=== PATIENT | female | born 1995 | race Caucasian/White ===

== ENCOUNTER 2019-02-07 15:09 | Emergency (ER) | payer OTHER ==
--- OUTSIDE RECORDS SUMMARY | 2019-02-07 15:11 | XMS REPORT ---
:1995 [facility] [address] [place] [address] Care Team Providers Name Role Phone Unavailable Unavailable Unavailable Payers Payer Name Policy Type Policy Number Effective Date Expiration Date Problems This patient has no known problems. Allergies, Adverse Reactions, Alerts Allergy Name Allergy Status Severity Reaction(s) Onset Inactive Treating Comments Type Date Date Clinician Beef Containing DA Active SV Products 09-09 00:00: 00 hydromorphone DA Active SV 09-09 00:00: 00 cyclobenzaprine DA Active SD 09-09 00:00: 00 chocolate DA Active SV flavor 09-09 00:00: 00 milk DA Active SV 09-09 00:00: 00 tomato DA Active SV 09-09 00:00: 00 Medications This patient has no known medications.
[2019-02-07 15:50] LABS: Urine Blood TRACE (NEG); Urine Glucose NEGATIVE (NEG); Urine Protein NEGATIVE (NEG); Urine pH 5.5 (5.0-7.0)
[2019-02-07 16:15] LABS: Urine Bacteria <20 /HPF (<20); Urine Culture Reflex Order NOT NEEDED; Urine RBC <5 /HPF (NONE SEEN)
[2019-02-07] MEDS ORDERED: ONDANSETRON 4 MG/2 ML VIAL ONE (16:30)
[2019-02-07] MEDS ORDERED: NA CHLORIDE 0.9% 1,000 ML ONE ×2 (16:30→17:01)
[2019-02-07] MEDS ORDERED: FAMOTIDINE 20 MG/2 ML VIAL IV ONE (16:30)
[2019-02-07 16:35] LABS: Absolute Lymphocytes (CBC) 3.2 K/uL (0.7-4.9); Basophils % 0.5 % (0-1.3); Hematocrit 36.6 % (36.0-45.0); Lymphocytes % 43.9 % (15.3-44.8); MPV 7.9 fL (7.6-11.3); RBC Red Blood Cell Count 4.92 M/uL (3.86-4.86)
[2019-02-07 16:54] LABS: Albumin 3.6 g/dL (3.4-5.0); Bilirubin Direct 0.1 mg/dL (0-0.2); Bilirubin Total 0.2 mg/dL (0.2-1.0); Potassium 3.7 mmol/L (3.5-5.1); Protein, Total 7.6 g/dL (6.4-8.2)
[2019-02-07] MEDS ORDERED: KETOROLAC 30 MG/ML INJ ONE (17:01)
--- NOTE | 2019-02-07 17:24 | RAD REPORT ---
EXAM DESCRIPTION: CTAbdomen Pelvis W Contrast - 02/07/2019 5:10 pm CLINICAL HISTORY: Abdominal pain. ABD PAIN COMPARISON: <Comparisons> TECHNIQUE: Biphasic CT imaging of the abdomen and pelvis was performed with 100 ml non-ionic IV cont rast. All CT scans are performed using dose optimization technique as appropriate and may include automated exposure control or mA/KV adjustment according to patient size. FINDINGS: The lung bases are clear. The liver, spleen, pancreas, adrenal glands and kidneys are within normal limits. Small bilateral elias ign renal cysts. No bowel obstruction, free air, free fluid or abscess. The appendix is normal. No evidence of signi ficant lymphadenopathy. No suspicious bony findings. IUD noted. IMPRESSION: No acute intra-abdominal or pelvic finding.
--- NOTE | 2019-02-07 18:05 | EDPHYS ---
Physician Documentation [facility] Name: Peri Clay Age: 23 yrs Sex: Female : 1995 Arrival Date: 02/07/2019 Time: 15:13 Bed 5 Private MD: ED Physician Kevin Plunkett HPI: 02/07 15:45 This 23 yrs old Female presents to ER via Ambulatory with complaints of cp Abdominal Pain, Nausea. 15:45 The patient presents with abdominal pain. cp 15:45 Associated signs and symptoms: Pertinent positives: nausea and vomiting, fever, right cp flank pain that started yesterday, Pertinent negatives: blood in stools, constipation, diarrhea, vomiting blood. The symptoms are described as constant. 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 - Social history:: Smoking status: Patient uses tobacco products, denies chronic smoking, but will smoke occasionally. - Ebola Screening: : No symptoms or risks identified at this time. ROS: 15:55 Constitutional: Negative for chills, fever, poor PO intake. cp 15:55 Eyes: Negative for injury, pain, redness, and discharge. cp 15:55 ENT: Negative for drainage from ear(s), ear pain, sore throat, difficulty swallowing, difficulty handling secretions. 15:55 Cardiovascular: Negative for chest pain. cp 15:55 Respiratory: Negative for cough, shortness of breath, wheezing. cp 15:55 Abdomen/GI: Positive for abdominal pain, nausea and vomiting, Negative for diarrhea, constipation, anorexia, black/tarry stool, rectal bleeding. 15:55 Back: Positive for flank pain, Negative for injury or acute deformity, decreased range of motion. 15:55 : Negative for pelvic pain, vaginal bleeding, vaginal discharge. 15:55 MS/extremity: Negative for injury or acute deformity, decreased range of motion. 15:55 Skin: Negative for rash. 15:55 Neuro: Negative for altered mental status, headache, weakness. 15:55 All other systems are negative. Exam: 16:00 Constitutional: The patient appears in no acute distress, alert, awake, non-toxic, well cp developed, well nourished. 16:00 Head/Face: Normocephalic, atraumatic. cp 16:00 Eyes: Periorbital structures: appear normal, Conjunctiva: normal, no exudate, no cp injection, Sclera: no appreciated abnormality, Lids and lashes: appear normal, bilaterally. 16:00 ENT: External ear(s): are unremarkable, Nose: is normal, Mouth: Lips: moist, Oral mucosa: pink and intact, moist, Posterior pharynx: is normal, airway is patent, no erythema, no exudate. 16:00 Chest/axilla: Inspection: normal, Palpation: is normal, no crepitus, no tenderness. 16:00 Cardiovascular: Rate: normal, Rhythm: regular. 16:00 Respiratory: the patient does not display signs of respiratory distress, Respirations: cp normal, no use of accessory muscles, no retractions, no splinting, no tachypnea, labored breathing, is not present, Breath sounds: are clear throughout, no decreased breath sounds, no stridor, no wheezing. 16:00 Abdomen/GI: Inspection: abdomen appears normal, Bowel sounds: active, all quadrants, Palpation: soft, in all quadrants, mild abdominal tenderness, in the right upper quadrant and right lower quadrant, rebound tenderness, is not appreciated, involuntary guarding, is not appreciated. 16:00 Back: pain, that is moderate, of the right mid back, ROM is painful. 16:00 Skin: no rash present. 16:00 Neuro: Orientation: to person, place \\T\\ time. Mentation: is normal, Cerebellar function: is grossly normal, Motor: moves all fours, Sensation: is normal. Vital Signs: 15:19 BP 111 / 78; Pulse 87; Resp 18 S; Temp 99.0(TE); Pulse Ox 98% on R/A; Weight 83.46 kg aa5 (R); Height 5 ft. 5 in. (165.10 cm) (R); Pain 6/10; 16:37 BP 116 / 81; Pulse 68; Resp 17; Pulse Ox 100% on R/A; tw2 17:15 Temp 98.3(O); tw2 17:29 BP 123 / 78; Pulse 90; Resp 18; Pulse Ox 100% ; sv 18:44 BP 117 / 91; Pulse 82; Resp 17; Pulse Ox 100% on R/A; tw2 15:19 Body Mass Index 30.62 (83.46 kg, 165.10 cm) aa5 MDM: 15:41 Patient medically screened. cp 16:00 Differential diagnosis: appendicitis, cholecystitis, Cholelithiasis, gastritis, cp non-specific abd pain, Pyelonephritis, Ureterolithiasis, urinary tract infection. 18:02 Data reviewed: vital signs, nurses notes, lab test result(s), radiologic studies, CT cp scan, and as a result, I will discharge patient. 18:02 Counseling: I had a detailed discussion with the patient and/or guardian regarding: the cp historical points, exam findings, and any diagnostic results supporting the discharge/admit diagnosis, lab results, radiology results, to return to the emergency department if symptoms worsen or persist or if there are any questions or concerns that arise at home. Special discussion: Based on the patient's Hx, exam, and Dx evaluation, there is no indication for emergent surgery or inpatient Tx. It is understood by the patient/guardian that if the Sx's persist or worsen they need to return immediately for re-evaluation. 02/07 15:42 Order name: Basic Metabolic Panel; Complete Time: 16:58 cp 02/07 15:42 Order name: CBC with Diff; Complete Time: 16:38 cp 02/07 16:38 Interpretation: Normal except: RBC 4.92; HGB 11.6; MCV 74.4; MCH 23.5; MCHC 31.6; RDW cp 16.0. 02/07 15:42 Order name: Creatinine for Radiology; Complete Time: 16:58 cp 02/07 15:42 Order name: Hepatic Function; Complete Time: 16:58 cp 02/07 15:42 Order name: Lipase; Complete Time: 16:58 cp 02/07 15:42 Order name: Urine Microscopic Only; Complete Time: 16:38 cp 02/07 15:45 Order name: Urine Dipstick--Ancillary (enter results); Complete Time: 16:38 eb 02/07 15:45 Order name: Urine --Ancillary (enter results); Complete Time: 16:38 eb 02/07 16:45 Order name: CT Abd/Pelvis - IV Contrast Only; Complete Time: 17:33 cp 02/07 15:42 Order name: IV Saline Lock; Complete Time: 16:29 cp 02/07 15:42 Order name: Labs collected and sent; Complete Time: 16:29 cp 02/07 15:42 Order name: Urine Dipstick-Ancillary (obtain specimen); Complete Time: 15:43 cp 02/07 15:42 Order name: Urine Test (obtain specimen); Complete Time: 15:43 cp 02/07 17:33 Order name: PO challenge; Complete Time: 18:15 cp Administered Medications: 16:35 Drug: Zofran 4 mg Route: IVP; Site: right antecubital; tw2 16:59 Follow up: Response: No adverse reaction; Nausea is decreased tw2 16:36 Drug: Pepcid 20 mg Route: IVP; Site: right antecubital; tw2 16:59 Follow up: Response: No adverse reaction tw2 16:36 Drug: NS 0.9% 1000 ml Route: IV; Rate: 1 bolus; Site: right antecubital; tw2 18:15 Follow up: Response: No adverse reaction; IV Status: Completed infusion; IV Intake: tw2 1000ml 17:10 Drug: TORadol 30 mg Route: IVP; Site: right antecubital; tw2 17:46 Follow up: Response: No adverse reaction; Pain is decreased tw2 17:21 Drug: NS 0.9% 1000 ml Route: IV; Rate: 1 bolus; Site: right antecubital; tw2 18:15 Follow up: Response: No adverse reaction; IV Status: Order to discontinue infusion tw2 Disposition: 02/07/19 18:04 Discharged to Home. Impression: Nausea and vomiting, Low back pain. - Condition is Stable. - Discharge Instructions: Back Pain, Adult, Nausea and Vomiting, Adult. - Prescriptions for Ibuprofen 800 mg Oral Tablet - take 1 tablet by ORAL route every 8 hours As needed take with food; 30 tablet. Zofran 4 mg Oral Tablet - take 1 tablet by ORAL route every 12 hours As needed; 20 tablet. - Medication Reconciliation Form, Thank You Letter, Antibiotic Education, Prescription Opioid Use, Work release form form. - Follow up: Private Physician; When: 2 - 3 days; Reason: Worsening of condition. - Problem is new. - Symptoms have improved. Signatures: Dispatcher [employer] Linh Beltran, RN RN aa5 Tarik Rai PA PA cp Wise, Tara RN RN tw2 Corrections: (The following items were deleted from the chart) 18:44 18:04 02/07/2019 18:04 Discharged to Home. Impression: Nausea and vomiting; Low back tw2 pain. Condition is Stable. Forms are Work release form, Medication Reconciliation Form, Thank You Letter, Antibiotic Education, Prescription Opioid Use. Follow up: Private Physician; When: 2 - 3 days; Reason: Worsening of condition. Problem is new. Symptoms have improved. cp
--- NOTE | 2019-02-07 18:05 | ER ---
Nurse's Notes [facility] Name: Peri Clay Age: 23 yrs Sex: Female : 1995 Arrival Date: 02/07/2019 Time: 15:13 Bed 5 Private MD: Diagnosis: Nausea and vomiting;Low back pain Presentation: 02/07 15:17 Presenting complaint: Patient states: "I started with kidney pain and nausea yesterday aa5 and I had confirmed strep on Tuesday and they told me to come to the ER for kidney pain if I had any". Pt reports she is currently taking Amoxicillin. Transition of care: patient was not received from another setting of care. Onset of symptoms was January 2019. Risk Assessment: Do you want to hurt yourself or someone else? Patient reports no desire to harm self or others. Initial Sepsis Screen: Does the patient meet any 2 criteria? No. Patient's initial sepsis screen is negative. Does the patient have a suspected source of infection? No. Patient's initial sepsis screen is negative. Care prior to arrival: None. 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 - Social history:: Smoking status: Patient uses tobacco products, denies chronic smoking, but will smoke occasionally. - Ebola Screening: : No symptoms or risks identified at this time. Screenin:29 Abuse screen: Denies threats or abuse. Nutritional screening: No deficits noted. tw2 Tuberculosis screening: No symptoms or risk factors identified. Fall Risk None identified. Assessment: 15:20 General: Appears in no apparent distress. Behavior is calm, cooperative, appropriate tw2 for age. Pain: Complains of pain in back and abdomen. Neuro: Level of Consciousness is awake, alert, obeys commands, Oriented to person, place, time, situation. Cardiovascular: Heart tones S1 S2 Patient's skin is warm and dry. Respiratory: Airway is patent Respiratory effort is even, unlabored, Respiratory pattern is regular, symmetrical, Breath sounds are clear bilaterally. GI: Abdomen is flat, Bowel sounds present X 4 quads. Abd is soft X 4 quads Abdomen is tender to palpation X 4 quads. : No signs and/or symptoms were reported regarding the genitourinary system. EENT: No signs and/or symptoms were reported regarding the EENT system. Derm: No signs and/or symptoms reported regarding the dermatologic system. Musculoskeletal: Range of motion: intact in all extremities. 16:37 Reassessment: Patient appears in no apparent distress at this time. No changes from tw2 previously documented assessment. Patient and/or family updated on plan of care and expected duration. Pain level reassessed. Patient is alert, oriented x 3, equal unlabored respirations, skin warm/dry/pink. 17:29 Reassessment: Patient appears in no apparent distress at this time. No changes from tw2 previously documented assessment. Patient and/or family updated on plan of care and expected duration. Pain level reassessed. Patient is alert, oriented x 3, equal unlabored respirations, skin warm/dry/pink. 18:15 Reassessment: Patient appears in no apparent distress at this time. No changes from tw2 previously documented assessment. Patient and/or family updated on plan of care and expected duration. Pain level reassessed. Patient is alert, oriented x 3, equal unlabored respirations, skin warm/dry/pink. pt tolerated PO fluids at this time, pt asking for work note and ready to be discharged at this time. 18:44 Reassessment: Patient appears in no apparent distress at this time. No changes from tw2 previously documented assessment. Patient and/or family updated on plan of care and expected duration. Pain level reassessed. Patient is alert, oriented x 3, equal unlabored respirations, skin warm/dry/pink. Vital Signs: 15:19 BP 111 / 78; Pulse 87; Resp 18 S; Temp 99.0(TE); Pulse Ox 98% on R/A; Weight 83.46 kg aa5 (R); Height 5 ft. 5 in. (165.10 cm) (R); Pain 6/10; 16:37 BP 116 / 81; Pulse 68; Resp 17; Pulse Ox 100% on R/A; tw2 17:15 Temp 98.3(O); tw2 17:29 BP 123 / 78; Pulse 90; Resp 18; Pulse Ox 100% ; sv 18:44 BP 117 / 91; Pulse 82; Resp 17; Pulse Ox 100% on R/A; tw2 15:19 Body Mass Index 30.62 (83.46 kg, 165.10 cm) aa5 ED Course: 15:13 Patient arrived in ED. mr 15:17 Arm band placed on. aa5 15:18 Triage completed. aa5 15:20 Bed in low position. Call light in reach. Pulse ox on. NIBP on. tw2 15:22 Tarik Rai PA is PHCP. cp 15:22 Kevin Plunkett MD is Attending Physician. cp 15:29 Ruby Álvarez RN is Primary Nurse. tw2 15:44 Urine collected: clean catch specimen, clear. 3 16:25 Initial lab(s) drawn, by ak, sent to lab. Inserted saline lock: 22 gauge in right dh3 antecubital area, using aseptic technique. Blood collected. 17:10 CT completed. Patient tolerated procedure well. Patient moved to CT. Patient moved back nj from CT. 17:24 CT Abd/Pelvis - IV Contrast Only In Process Unspecified. EDMS 18:07 Awaiting: completion of IV fluids at this time PRIOR to discharge. tw2 18:15 No provider procedures requiring assistance completed. IV discontinued, intact, tw2 bleeding controlled, No redness/swelling at site. Pressure dressing applied. Administered Medications: 16:35 Drug: Zofran 4 mg Route: IVP; Site: right antecubital; tw2 16:59 Follow up: Response: No adverse reaction; Nausea is decreased tw2 16:36 Drug: Pepcid 20 mg Route: IVP; Site: right antecubital; tw2 16:59 Follow up: Response: No adverse reaction tw2 16:36 Drug: NS 0.9% 1000 ml Route: IV; Rate: 1 bolus; Site: right antecubital; tw2 18:15 Follow up: Response: No adverse reaction; IV Status: Completed infusion; IV Intake: tw2 1000ml 17:10 Drug: TORadol 30 mg Route: IVP; Site: right antecubital; tw2 17:46 Follow up: Response: No adverse reaction; Pain is decreased tw2 17:21 Drug: NS 0.9% 1000 ml Route: IV; Rate: 1 bolus; Site: right antecubital; tw2 18:15 Follow up: Response: No adverse reaction; IV Status: Order to discontinue infusion tw2 Intake: 18:15 IV: 1000ml; Total: 1000ml. tw2 Outcome: 18:04 Discharge ordered by . terence 18:43 Discharged to home ambulatory. tw2 18:43 Condition: stable 18:43 Discharge instructions given to patient, Instructed on discharge instructions, follow up and referral plans. medication usage, Demonstrated understanding of instructions, follow-up care, medications, Prescriptions given X 2. 18:44 Patient left the ED. tw2 Signatures: Dispatcher [employer] EDEsmer Hi, RN RN Ruthann Begum Carlos, Linh RN RN aa5 Tarik Rai PA PA cp Wise, Tara, RN RN tw2 Kenn August Deanna [facility]
== END 2019-02-07 18:44 | disposition home or self-care (01) ==
LOC: ER 15:09
DX: M54.5 Low back pain (principal); Z72.0 Tobacco use; Z88.6 Allergy status to analgesic agent; Z88.8 Allergy status to other drugs, medicaments and biological substances
CPT/HCPCS: 96361; 85025; 80048; 36415; 81025; 80076; 83690; 74177; 96375; 96374; 99284; Q9967; J7030 ×2; J2405; 81003; 81015

== ENCOUNTER 2020-04-23 14:57 | Emergency (ER) | payer OTHER ==
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
--- OUTSIDE RECORDS SUMMARY | 2020-04-23 15:01 | XMS REPORT | Continuity of Care Document ---
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 REFLEX (test code = 0-3 WBC/HPF 0-3 WBCUCL) UA BACTERIA (test code = BACU) NONE SEEN /HPF NONE SEEN UA SQUAMOUS CELLS (test code = 0-5 /HPF NONE SEEN SQU) UA MUCUS (test code = MUCU) TRACE /LPF NONE SEEN Indication for culture: Dysuria/FrequencySpecimen Description: CLEAN CATCH COMPREHENSIVE METABOLIC [id number] 21:42:00 Test Item Value Reference Range Interpretation Comments SODIUM (test code = NA) mEq/L 134-147 POTASSIUM (test code = K) mEq/L 3.4-5.0 CHLORIDE (test code = CL) mEq/L 100-108 CARBON DIOXIDE (test code = CO2) mEq/L 21-33 ANION GAP (test code = GAP) 0-20 GLUCOSE (test code = GLU) mg/dL 70-110 BLOOD UREA NITROGEN (test code = mg/dL 7-18 BUN) GLOMERULAR FILTRATION RATE (test 110-120 code = GFR) CREATININE (test code = CREAT) mg/dL 0.6-1.3 TOTAL PROTEIN (test code = PROT) g/dL 6.4-8.2 ALBUMIN (test code = ALB) g/dL 3.4-5.0 CALCIUM (test code = CA) mg/dL 8.0-10.5 BILIRUBIN TOTAL (test code = BILT) MG/DL <1.5 SGOT/AST (test code = AST) IUnit/L 15-37 SGPT/ALT (test code = ALT) IUnit/L 15-65 ALKALINE PHOSPHATASE TOTAL (test IUnit/L 20-125 code = ALKP) [id number] 21:42:00 Test Item Value Reference Range Interpretation Comments LIPASE (test code = LIP) IUnit/L 73-393 HCG SERUM [id number] 21:42:00 Test Item Value Reference Range Interpretation Comments HCG SERUM QUAL (test code = SERUM NEGATIVE NEGATIVE HCGQL) CBC W/AUTO [id number] 21:32:00 Test Item Value Reference Range Interpretation Comments WHITE BLOOD CELL (test code = 10.43 x10 3/uL 4.5-11.0 N WBC) RED BLOOD CELL (test code = 4.71 x10 6/uL 3.54-5.02 N RBC) HEMOGLOBIN (test code = HGB) 12.1 g/dL 11.0-15.0 N HEMATOCRIT (test code = HCT) 39.1 % 33.0-45.0 N MEAN CELL VOLUME (test code = 83.0 fL 81.0-99.0 N MCV) MEAN CELL HGB (test code = 25.7 pg 27.0-33.0 L MCH) MEAN CELL HGB CONCETRATION 30.9 g/dL 33.0-37.0 L (test code = MCHC) RED CELL DISTRIBUTION WIDTH CV 16.3 % 11.5-14.5 H (test code = RDW) RED CELL DISTRIBUTION WIDTH SD 49.9 fL 37.0-54.0 N (test code = RDW-SD) PLATELET COUNT (test code = 281 x10 3/uL 150-400 N PLT) MEAN PLATELET VOLUME (test 9.5 fL 7.0-9.0 H code = MPV) NEUTROPHIL % (test code = NT%) 55.2 % 56.0-77.0 L IMMATURE GRANULOCYTE % (test 0.3 % 0.0-2.0 N code = IG%) LYMPHOCYTE % (test code = LY%) 35.5 % 14.0-32.0 H MONOCYTE % (test code = MO%) 7.0 % 4.8-9.0 N EOSINOPHIL % (test code = EO%) 1.6 % 0.3-3.7 N BASOPHIL % (test code = BA%) 0.4 % 0.0-2.0 N NUCLEATED RBC % (test code = 0.0 % 0-0 N NRBC%) NEUTROPHIL # (test code = NT#) 5.76 x10 3/uL 2.0-7.6 N IMMATURE GRANULOCYTE # (test 0.03 x10 3/uL 0.00-0.03 N code = IG#) LYMPHOCYTE # (test code = LY#) 3.70 x10 3/uL 1.0-3.8 N MONOCYTE # (test code = MO#) 0.73 x10 3/uL 0.1-0.8 N EOSINOPHIL # (test code = EO#) 0.17 x10 3/uL 0.0-0.2 N BASOPHIL # (test code = BA#) 0.04 x10 3/uL 0.0-0.2 N NUCLEATED RBC # (test code = 0.00 x10 3/uL 0.0-0.1 N NRBC#) MANUAL DIFF REQUIRED (test NO code = MDIFF)
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
[2020-04-23] MEDS ORDERED: DIPHENHYDRAMINE 25 MG TAB/CAP ONE (16:04)
[2020-04-23] MEDS ORDERED: METHYLPREDNISOLONE 125 MG INJ ONE (16:04)
[2020-04-23] MEDS ORDERED: FAMOTIDINE 20 MG TAB ONE (16:04)
--- NOTE | 2020-04-23 17:38 | EDPHYS ---
Physician Documentation [facility] Name: Peri Clay Age: 24 yrs Sex: Female : 1995 Arrival Date: 04/23/2020 Time: 15:02 Bed Waiting Private MD: STEFAN Physician Tarik Terry HPI: 04/23 18:04 This 24 yrs old Female presents to ER via Ambulatory with complaints of kb Allergic Reaction, Breathing Difficulty. 18:04 The patient presents with difficulty swallowing, shortness of breath. Onset: The kb symptoms/episode began/occurred at 14:00. Associated signs and symptoms: Pertinent positives: shortness of breath. Possible causes: tomato. At home the patient or guardian has treated the symptoms with EpiPen. Severity of symptoms: At their worst the symptoms were moderate in the emergency department the symptoms have improved. The patient has experienced similar episodes in the past. The patient has not recently seen a physician. Pt reports she was having shortness of breath and felt like swelling to throat that started after exposure to tomato at 1400. States she used her epipen and symptoms improved, but have not resolved. . 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 - Social history:: Smoking status: Reported history of juuling and/or vaping. ROS: 18:04 Constitutional: Negative for fever, chills, and weight loss, Cardiovascular: Negative kb for chest pain, palpitations, and edema, Abdomen/GI: Negative for abdominal pain, nausea, vomiting, diarrhea, and constipation, Back: Negative for injury and pain, MS/Extremity: Negative for injury and deformity, Skin: Negative for injury, rash, and discoloration, Neuro: Negative for headache, weakness, numbness, tingling, and seizure. 18:04 ENT: Positive for sore throat. 18:04 Respiratory: Positive for shortness of breath. Exam: 18:03 Constitutional: This is a well developed, well nourished patient who is awake, alert, kb and in no acute distress. Head/Face: Normocephalic, atraumatic. ENT: Nares patent. No nasal discharge, no septal abnormalities noted. Tympanic membranes are normal and external auditory canals are clear. Oropharynx with no redness, swelling, or masses, exudates, or evidence of obstruction, uvula midline. Mucous membranes moist. Chest/axilla: Normal chest wall appearance and motion. Nontender with no deformity. No lesions are appreciated. Cardiovascular: Regular rate and rhythm with a normal S1 and S2. No gallops, murmurs, or rubs. Normal PMI, no JVD. No pulse deficits. Respiratory: Lungs have equal breath sounds bilaterally, clear to auscultation and percussion. No rales, rhonchi or wheezes noted. No increased work of breathing, no retractions or nasal flaring. Abdomen/GI: Soft, non-tender, with normal bowel sounds. No distension or tympany. No guarding or rebound. No evidence of tenderness throughout. Back: No spinal tenderness. No costovertebral tenderness. Full range of motion. Skin: Warm, dry with normal turgor. Normal color with no rashes, no lesions, and no evidence of cellulitis. MS/ Extremity: Pulses equal, no cyanosis. Neurovascular intact. Full, normal range of motion. Neuro: Awake and alert, GCS 15, oriented to person, place, time, and situation. Cranial nerves II-XII grossly intact. Motor strength 5/5 in all extremities. Sensory grossly intact. Cerebellar exam normal. Normal gait. Vital Signs: 15:38 BP 116 / 84; Pulse 100; Resp 18 S; Temp 99.0(TE); Pulse Ox 100% on R/A; Weight 86.18 kg aa5 (R); Height 5 ft. 5 in. (165.10 cm) (R); 17:40 BP 124 / 82; Pulse 80; Resp 16 S; Temp 98.2(TE); Pulse Ox 100% on R/A; aa5 15:38 Body Mass Index 31.62 (86.18 kg, 165.10 cm) aa5 MDM: 15:48 Patient medically screened. kb 16:50 Data reviewed: vital signs, nurses notes. Data interpreted: Pulse oximetry: on room air kb is 100 %. Interpretation: normal. 17:37 Counseling: I had a detailed discussion with the patient and/or guardian regarding: the kb historical points, exam findings, and any diagnostic results supporting the discharge/admit diagnosis, the need for outpatient follow up, a family practitioner, to return to the emergency department if symptoms worsen or persist or if there are any questions or concerns that arise at home. ED course: pt feeling better after treatment. Administered Medications: 15:56 Drug: Pepcid 20 mg Route: PO; aa5 15:56 Drug: SOLU-Medrol 125 mg Route: IM; Site: right deltoid; aa5 15:56 Drug: Benadryl 25 mg Route: PO; aa5 Disposition: 04/24 05:32 Co-signature as Attending Physician, Tarik Terry MD I agree with the assessment and josesito plan of care. Disposition: 04/23/20 17:38 Discharged to Home. Impression: Allergy to other foods. - Condition is Stable. - Discharge Instructions: Food Allergy, [id number]. - Prescriptions for Pepcid 20 mg Oral Tablet - take 1 tablet by ORAL route every 12 hours for 5 days; 10 tablet. Prednisone 20 mg Oral Tablet - take 1 tablet by ORAL route once daily for 5 days; 5 tablet. - Medication Reconciliation Form, Thank You Letter, Antibiotic Education, Prescription Opioid Use, Work release form form. - Follow up: Emergency Department; When: As needed; Reason: Worsening of condition. Follow up: Private Physician; When: 2 - 3 days; Reason: Recheck today's complaints, Continuance of care, Re-evaluation by your physician. Signatures: Graciela Kaur, WALKING DRAGLINE OILER-C WALKING DRAGLINE OILER-Caseyb Tarik Terry MD MD cha Calderon, Audri, RN RN aa5 Corrections: (The following items were deleted from the chart) 04/23 17:45 17:38 04/23/2020 17:38 Discharged to Home. Impression: Allergy to other foods. aa5 Condition is Stable. Forms are Medication Reconciliation Form, Thank You Letter, Antibiotic Education, Prescription Opioid Use. Follow up: Emergency Department; When: As needed; Reason: Worsening of condition. Follow up: Private Physician; When: 2 - 3 days; Reason: Recheck today's complaints, Continuance of care, Re-evaluation by your physician. kb
--- NOTE | 2020-04-23 17:38 | ER ---
Nurse's Notes [facility] Name: Peri Clay Age: 24 yrs Sex: Female : 1995 Arrival Date: 04/23/2020 Time: 15:02 Bed Waiting Private MD: Diagnosis: Allergy to other foods Presentation: 04/23 15:38 Chief complaint: Patient states: "I got exposed to tomatoes today and I am allergic to aa5 them so I got all red and my boss gave me an epi pen around 2pm". Pt states "my throat is still hurts to swallow and I did throw up 3 times". Coronavirus screen: Client denies travel out of the [place] in the last 14 days. At this time, the client does not indicate any symptoms associated with coronavirus-19. Ebola Screen: Patient negative for fever greater than or equal to 101.5 degrees Fahrenheit, and additional compatible Ebola Virus Disease symptoms. Onset: The symptoms/episode began/occurred 1400. Anaphylaxis evaluation, the patient reports or I have noted the following symptoms which indicate a significant risk of anaphylaxis: nausea, vomiting, and/or diarrhea shortness of breath. Initial Sepsis Screen: Does the patient meet any 2 criteria? No. Patient's initial sepsis screen is negative. Does the patient have a suspected source of infection? No. Patient's initial sepsis screen is negative. Risk Assessment: Do you want to hurt yourself or someone else? Patient reports no desire to harm self or others. Onset of symptoms was April 23, 2020. 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 - Social history:: Smoking status: Reported history of juuling and/or vaping. Screenin:40 Abuse screen: Denies threats or abuse. Nutritional screening: No deficits noted. aa5 Tuberculosis screening: No symptoms or risk factors identified. Fall Risk None identified. Assessment: 15:40 General: Appears comfortable, Behavior is calm, cooperative. Pain: Denies pain. Neuro: aa5 Level of Consciousness is awake, alert, obeys commands, Oriented to person, place, time, situation. Cardiovascular: Heart tones S1 S2 present Rhythm is regular. Respiratory: Airway is patent Respiratory effort is even, unlabored, Respiratory pattern is regular, symmetrical, Breath sounds are clear bilaterally. GI: Abdomen is round Reports vomiting. 15:40 : No signs and/or symptoms were reported regarding the genitourinary system. EENT: aa5 Reports sore throat . Derm: Skin is pink, warm \\T\\ dry. Mild redness noted to chest. Musculoskeletal: Range of motion: intact in all extremities. 17:00 Reassessment: Patient is alert, oriented x 3, equal unlabored respirations, skin aa5 warm/dry/pink. Checked on pt out in ER lob, pt reports only slight improvement of symptoms. . 17:44 Reassessment: Patient is alert, oriented x 3, equal unlabored respirations, skin aa5 warm/dry/pink. Patient states feeling better. Vital Signs: 15:38 BP 116 / 84; Pulse 100; Resp 18 S; Temp 99.0(TE); Pulse Ox 100% on R/A; Weight 86.18 kg aa5 (R); Height 5 ft. 5 in. (165.10 cm) (R); 17:40 BP 124 / 82; Pulse 80; Resp 16 S; Temp 98.2(TE); Pulse Ox 100% on R/A; aa5 15:38 Body Mass Index 31.62 (86.18 kg, 165.10 cm) aa5 ED Course: 15:02 Patient arrived in ED. mr 15:38 Arm band placed on. aa5 15:38 Patient has correct armband on for positive identification. aa5 15:41 Triage completed. aa5 15:48 Graciela Kaur [facility]C [facility] kb 15:48 Tarik Terry MD is Attending Physician. kb 17:45 No provider procedures requiring assistance completed. Patient did not have IV access aa5 during this emergency room visit. Administered Medications: 15:56 Drug: Pepcid 20 mg Route: PO; aa5 15:56 Drug: SOLU-Medrol 125 mg Route: IM; Site: right deltoid; aa5 15:56 Drug: Benadryl 25 mg Route: PO; aa5 Outcome: 17:38 Discharge ordered by MD. cottrlel 17:44 Discharged to home ambulatory. aa5 17:44 Condition: improved 17:44 Discharge instructions given to patient, Instructed on discharge instructions, follow up and referral plans. medication usage, Demonstrated understanding of instructions, follow-up care, medications, Prescriptions given X 2. 17:45 Patient left the ED. aa5 Signatures: Graciela Kaur, CARROTING MACHINE OFFBEARER-C CARROTING MACHINE OFFBEARER-Jersey Joseph Ruthann Gonzalez, Linh, RN RN aa5 Corrections: (The following items were deleted from the chart) 15:43 15:38 Chief complaint: Patient states: "I got exposed to tomatoes today and I am aa5 allergic to them so I got an epi pen around 2pm". Pt states "my throat is still hurts to swallow and I did throw up 3 times" aa5 19:36 18:58 General: Appears comfortable, Behavior is calm, cooperative, aa5 aa5 19:36 18:58 Pain: Denies pain. aa5 aa5 19:36 18:58 Neuro: Level of Consciousness is awake, alert, obeys commands, Oriented to aa5 person, place, time, situation, aa5 19:36 18:58 Cardiovascular: Heart tones S1 S2 present Rhythm is regular aa5 aa5 19:36 18:58 Respiratory: Airway is patent Respiratory effort is even, unlabored, Respiratory aa5 pattern is regular, symmetrical, Breath sounds are clear bilaterally. aa5 19:36 18:58 GI: Abdomen is round aa5 aa5
[2020-04-23 18:02] VITALS: O2SAT 100
[2020-04-23 18:04] VITALS: BP 124/82; TEMP 98.2
== END 2020-04-23 17:45 | disposition home or self-care (01) ==
LOC: ER 14:57
DX: R06.02 Shortness of breath (principal); J02.9 Acute pharyngitis, unspecified; Z88.5 Allergy status to narcotic agent; Z88.6 Allergy status to analgesic agent; Z91.018 Allergy to other foods; Z87.891 Personal history of nicotine dependence
CPT/HCPCS: 96372; 99283; J2930

== ENCOUNTER 2020-05-30 12:39 | Emergency (ER) | payer OTHER ==
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
[2020-05-30] MEDS ORDERED: IBUPROFEN 400 MG TAB ONE (14:22)
--- NOTE | 2020-05-30 15:57 | EDPHYS ---
Physician Documentation [facility] Name: Peri Clay Age: 24 yrs Sex: Female : 1995 Arrival Date: 05/30/2020 Time: 12:41 Bed 14 Private MD: ED Physician Ben Solis HPI: 05/30 14:04 This 24 yrs old Female presents to ER via Wheelchair with complaints of Knee cp Injury. 14:05 The patient presents with an injury, pain, that is acute. cp 14:05 The complaints affect the right knee. Context: resulted from twisting of the extremity, cp the patient can partially bear weight, the patient is able to ambulate, with moderate difficulty. Onset: The symptoms/episode began/occurred 3 week(s) ago, and became worse yesterday, after re injuring knee when she turned, twisting knee while at work when alarm went off. Modifying factors: the symptoms are aggravated by movement, weight bearing, bending knee. Associated signs and symptoms: Pertinent positives: swelling, Pertinent negatives calf tenderness, numbness. Treatment prior to arrival includes: knee brace. 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 - Social history:: Smoking status: Reported history of juuling and/or vaping. ROS: 14:10 MS/extremity: Positive for pain, swelling, of the right knee. cp 14:10 Neck: Negative for pain with movement, pain at rest, stiffness. cp 14:10 Back: Negative for pain at rest, pain with movement. 14:10 Skin: Negative for cellulitis, rash. 14:10 All other systems are negative. Exam: 14:15 Constitutional: The patient appears in no acute distress, alert, awake, well developed, cp well nourished, obese. 14:15 Musculoskeletal/extremity: Extremities: grossly normal except: noted in the right knee: cp pain, swelling, tenderness, There is no evidence of deformity, ROM: limited passive range of motion due to pain, in the right knee, Perfusion: the extremity is normally perfused throughout, Sensation intact. 14:15 Skin: cellulitis, is not appreciated, no rash present. Vital Signs: 13:41 BP 125 / 87; Pulse 85; Resp 16 S; Temp 98.4(TE); Pulse Ox 98% on R/A; Weight 92.99 kg aa5 (R); Height 5 ft. 5 in. (165.10 cm) (R); 13:41 Body Mass Index 34.11 (92.99 kg, 165.10 cm) aa5 Procedures: 16:20 Splinting: Splint applied to right knee using knee immobilizer, applied by nurse. cp Examined by me, post splint application: neurovascular intact, Patient tolerated well. MDM: 15:01 Patient medically screened. cp 15:15 Differential diagnosis: tendonitis, sprain, ligament injury. cp 15:45 Test interpretation: by ED physician or midlevel provider: xrays of right knee negative cp for fracture. 15:45 Data reviewed: vital signs, nurses notes, radiologic studies, plain films. cp 15:56 Counseling: I had a detailed discussion with the patient and/or guardian regarding: the cp historical points, exam findings, and any diagnostic results supporting the discharge/admit diagnosis, radiology results, the need for outpatient follow up, a orthopedic surgeon, to return to the emergency department if symptoms worsen or persist or if there are any questions or concerns that arise at home. 15:56 Response to treatment: the patient's symptoms have mildly improved after treatment, and cp as a result, I will discharge patient. 05/30 14:03 Order name: XRAY Knee RIGHT 3 view; Complete Time: 16:12 cp 05/30 16:12 Interpretation: Report reviewed. cp 05/30 15:47 Order name: Knee Immobilizer; Complete Time: 16:06 cp 05/30 15:47 Order name: Crutches; Complete Time: 16:06 cp Administered Medications: 14:09 Drug: Ibuprofen 800 mg Route: PO; aa5 15:00 Follow up: Response: No adverse reaction; Pain is unchanged, physician notified; RASS: sv Alert and Calm (0) 16:20 Drug: [place] (7.5 mg-325 mg) 1 tabs {Note: rass1.} Route: PO; sv 16:24 Follow up: Response: No adverse reaction; Medication administered at discharge.; RASS: sv Restless (+1) 16:23 CANCELLED (Physician Discretion): Hydrocodone-Acetaminophen (7.5 mg-325 mg) 2 tabs PO sv once; RASS on ADMIN: Combtv4, Very Agttd3, Agttd2, Rstlss1, AlertClm0, Drwsy-1, Lt Sdtn-2, Mod Sdtn-3, Dp Sdtn-4, UnArsble-5 Disposition: 16:30 Chart complete. cp 17:16 Co-signature as Attending Physician, Bne Solis MD I agree with the assessment and kdr plan of care. Disposition: 05/30/20 15:57 Discharged to Home. Impression: Pain in right knee. - Condition is Stable. - Discharge Instructions: Knee Immobilizer, Knee Pain. - Prescriptions for Naprosyn 500 mg Oral Tablet - take 1 tablet by ORAL route 2 times per day take with food; 20 tablet. Tramadol 50 mg Oral Tablet - take 1 tablet by ORAL route every 8 hours as needed; 12 tablet. - Medication Reconciliation Form, Thank You Letter, Antibiotic Education, Prescription Opioid Use form. - Follow up: Michoacano Arora MD; When: 2 - 3 days; Reason: Recheck today's complaints. - Problem is new. - Symptoms have improved. Signatures: Dispatcher [employer] Esmer Henderson RN RN sv Rittger, Kevin, MD MD kdr Calderon, Audri, RN RN aa5 Tarik Rai PA PA cp Corrections: (The following items were deleted from the chart) 16:23 15:55 Hydrocodone-Acetaminophen (7.5 mg-325 mg) 2 tabs PO once; RASS on ADMIN: Combtv4, sv Very Agttd3, Agttd2, Rstlss1, AlertClm0, Drwsy-1, Lt Sdtn-2, Mod Sdtn-3, Dp Sdtn-4, UnArsble-5 ordered. cp 16:23 16:23 Hydrocodone-Acetaminophen (7.5 mg-325 mg) 2 tabs PO once; RASS on ADMIN: Combtv4, sv Very Agttd3, Agttd2, Rstlss1, AlertClm0, Drwsy-1, Lt Sdtn-2, Mod Sdtn-3, Dp Sdtn-4, UnArsble-5 given. sv 16:23 16:23 Hydrocodone-Acetaminophen (7.5 mg-325 mg) 2 tabs PO once; RASS on ADMIN: Combtv4, sv Very Agttd3, Agttd2, Rstlss1, AlertClm0, Drwsy-1, Lt Sdtn-2, Mod Sdtn-3, Dp Sdtn-4, UnArsble-5 ordered. sv 16:25 15:57 05/30/2020 15:57 Discharged to Home. Impression: Pain in right knee. Condition is sv Stable. Forms are Medication Reconciliation Form, Thank You Letter, Antibiotic Education, Prescription Opioid Use. Follow up: Michoacano Arora; When: 2 - 3 days; Reason: Recheck today's complaints. Problem is new. Symptoms have improved. cp
--- NOTE | 2020-05-30 15:57 | ER ---
Nurse's Notes [facility] Name: Peri Clay Age: 24 yrs Sex: Female : 1995 Arrival Date: 05/30/2020 Time: 12:41 Bed 14 Private MD: Diagnosis: Pain in right knee Presentation: 05/30 13:41 Chief complaint: Patient states: "I sprained my right knee about 3 weeks ago but aa5 yesterday at work we had an incident at work and moved to fast and twisted my knee and now I can't really walk on it because it hurts too much". Pt states "I know it's not broken but it hurts too much". Coronavirus screen: Client denies travel out of the [place] in the last 14 days. At this time, the client does not indicate any symptoms associated with coronavirus-19. Ebola Screen: Patient negative for fever greater than or equal to 101.5 degrees Fahrenheit, and additional compatible Ebola Virus Disease symptoms. Initial Sepsis Screen: Does the patient meet any 2 criteria? No. Patient's initial sepsis screen is negative. Does the patient have a suspected source of infection? No. Patient's initial sepsis screen is negative. Risk Assessment: Do you want to hurt yourself or someone else? Patient reports no desire to harm self or others. Onset of symptoms was May 2020. 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 - Social history:: Smoking status: Reported history of juuling and/or vaping. Screenin:30 Abuse screen: Denies threats or abuse. Denies injuries from another. Nutritional sv screening: No deficits noted. Tuberculosis screening: No symptoms or risk factors identified. Fall Risk None identified. Assessment: 14:00 Reassessment: PA examined pt in triage. . aa5 15:30 General: Appears in no apparent distress. uncomfortable, well groomed, well developed, sv Behavior is calm, cooperative, appropriate for age. Pain: Complains of pain in right knee. Neuro: Level of Consciousness is awake, alert, obeys commands, Oriented to person, place, time, situation, Moves all extremities. Full function. Respiratory: Respiratory effort is even, unlabored, Respiratory pattern is regular, symmetrical. Derm: Skin is pink, warm \\T\\ dry. Musculoskeletal: Range of motion: limited in right knee Reports swelling in right knee. Vital Signs: 13:41 BP 125 / 87; Pulse 85; Resp 16 S; Temp 98.4(TE); Pulse Ox 98% on R/A; Weight 92.99 kg aa5 (R); Height 5 ft. 5 in. (165.10 cm) (R); 13:41 Body Mass Index 34.11 (92.99 kg, 165.10 cm) aa5 ED Course: 12:41 Patient arrived in ED. rg4 13:25 Tarik Rai PA is PHCP. cp 13:25 Ben Solis MD is Attending Physician. cp 13:26 Ben Solis MD is Attending Physician. cp 13:41 Arm band placed on. aa5 13:43 Triage completed. aa5 15:13 Esmer Zaman, RN is Primary Nurse. sv 15:30 Patient has correct armband on for positive identification. Bed in low position. Call sv light in reach. Door closed. Head of bed elevated. 15:50 XRAY Knee RIGHT 3 view In Process Unspecified. EDMS 15:56 Michoacano Arora MD is Referral Physician. cp 16:05 Crutch training done. Dilip wrap to right knee Knee immobilizer applied on right knee. jp3 16:25 No provider procedures requiring assistance completed. Patient did not have IV access sv during this emergency room visit. Administered Medications: 14:09 Drug: Ibuprofen 800 mg Route: PO; aa5 15:00 Follow up: Response: No adverse reaction; Pain is unchanged, physician notified; RASS: sv Alert and Calm (0) 16:20 Drug: [place] (7.5 mg-325 mg) 1 tabs {Note: rass1.} Route: PO; sv 16:24 Follow up: Response: No adverse reaction; Medication administered at discharge.; RASS: sv Restless (+1) 16:23 CANCELLED (Physician Discretion): Hydrocodone-Acetaminophen (7.5 mg-325 mg) 2 tabs PO sv once; RASS on ADMIN: Combtv4, Very Agttd3, Agttd2, Rstlss1, AlertClm0, Drwsy-1, Lt Sdtn-2, Mod Sdtn-3, Dp Sdtn-4, UnArsble-5 Outcome: 15:57 Discharge ordered by MD. cp 16:25 Discharged to home via wheelchair, with crutches. sv 16:25 Condition: stable 16:25 Discharge instructions given to patient, Instructed on discharge instructions, follow up and referral plans. medication usage, crutch walking, knee immobilizer application Demonstrated understanding of instructions, follow-up care, medications, crutch walking, Prescriptions given X 2. 16:25 Patient left the ED. sv Signatures: Dispatcher [employer] Esmer Henderson RN RN sv Calderon, Audri RN RN aa5 Tarik Rai PA PA Monique Das4 Wyatt Andrea jp3 Corrections: (The following items were deleted from the chart) 16:23 16:22 Hydrocodone-Acetaminophen (7.5 mg-325 mg) 2 tabs PO sv sv
--- NOTE | 2020-05-30 16:00 | RAD REPORT ---
EXAM DESCRIPTION: RAD - Knee Right 3 View - 05/30/2020 3:50 pm CLINICAL HISTORY: Right knee pain FINDINGS: No fracture or dislocation is seen. No significant bone or joint abnormality noted
[2020-05-30] MEDS ORDERED: HYDROCODONE/APAP 7.5/325 MG TAB ONE (16:21)
[2020-06-02 15:09] VITALS: BP 125/87; TEMP 98.4; O2SAT 98
== END 2020-05-30 16:25 | disposition home or self-care (01) ==
LOC: ER 12:39
DX: M25.561 Pain in right knee (principal); Z88.5 Allergy status to narcotic agent; Z88.6 Allergy status to analgesic agent; Z88.8 Allergy status to other drugs, medicaments and biological substances; Z87.891 Personal history of nicotine dependence
CPT/HCPCS: 99284

== ENCOUNTER 2020-07-12 15:43 | Emergency (ER) | payer OTHER ==
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
[2020-07-12 16:17] LABS: Protime INR 1.05
[2020-07-12 16:19] LABS: Absolute Lymphocytes (CBC) 2.7 K/uL (0.7-4.9); Basophils % 0.3 % (0-1.3); Hematocrit 43.4 % (36.0-45.0); Lymphocytes % 28.8 % (15.3-44.8); MPV 7.6 fL (7.6-11.3); RBC Red Blood Cell Count 5.14 M/uL (3.86-4.86)
[2020-07-12] MEDS ORDERED: LORAZEPAM 0.5 MG TABLET ONE (16:27)
--- NOTE | 2020-07-12 16:35 | RAD REPORT ---
EXAM DESCRIPTION: RAD - Chest Single View - 07/12/2020 4:25 pm CLINICAL HISTORY: Chest pain;Palpitations COMPARISON: None TECHNIQUE: AP portable chest image was obtained 07/12/2020 4:25 pm . FINDINGS: Lungs are clear. Heart and vasculature are normal. No measurable pleural effusion and no p neumothorax. No acute bony abnormality seen. No acute aortic findings suspected. IMPRESSION: No acute cardiopulmonary process.
[2020-07-12 16:44] LABS: ALT/SGPT 22 U/L (12-78); AST/SGOT 15 U/L (15-37); Albumin 3.4 g/dL (3.4-5.0); Alkaline Phosphatase 114 U/L (45-117); BUN Blood Urea Nitrogen 11 mg/dL (7-18); Bicarbonate 27 mmol/L (21-32); Bilirubin Direct 0.1 mg/dL (0-0.2); Bilirubin Total 0.4 mg/dL (0.2-1.0); Glucose Level 129 mg/dL (74-106); Magnesium 2.1 mg/dL (1.8-2.4); Potassium 3.6 mmol/L (3.5-5.1); Protein, Total 7.6 g/dL (6.4-8.2); Sodium Level 141 mmol/L (136-145); Thyroid Stimulating Hormone 0.609 uIU/mL (0.360-3.740); Troponin (Emerg Dept Use Only) < 0.02 ng/mL (0.0-0.045)
[2020-07-12 17:10] LABS: Barbiturates NEGATIVE (NEGATIVE); Benzodiazepines NEGATIVE (NEGATIVE); Cocaine NEGATIVE (NEGATIVE); METHAMPHETAM NEGATIVE (NEGATIVE); Methadone NEGATIVE (NEGATIVE); Opiates NEGATIVE (NEGATIVE); Phencyclidine NEGATIVE (NEGATIVE); THC Cannibis NEGATIVE (NEGATIVE)
[2020-07-12 17:26] LABS: Urine Blood NEGATIVE (NEG); Urine Glucose NEGATIVE (NEG); Urine Protein NEGATIVE (NEG); Urine Specific Gravity 1.025 (1.005-1.030)
--- NOTE | 2020-07-12 17:34 | ER ---
Nurse's Notes [facility] Name: Peri Clay Age: 24 yrs Sex: Female : 1995 Arrival Date: 07/12/2020 Time: 15:44 Bed 17 Private MD: Diagnosis: Chest pain, unspecified;Acute stress reaction Presentation: 07/12 15:46 Coronavirus screen: Client denies travel out of the [place] in the last 14 days. At this ll1 time, the client does not indicate any symptoms associated with coronavirus-19. Ebola Screen: Patient denies travel to an Ebola-affected area in the 21 days before illness onset. Initial Sepsis Screen: Does the patient meet any 2 criteria? No. Patient's initial sepsis screen is negative. Does the patient have a suspected source of infection? No. Patient's initial sepsis screen is negative. Risk Assessment: Do you want to hurt yourself or someone else? Patient reports no desire to harm self or others. Onset of symptoms. Onset of symptoms. 15:46 Method Of Arrival: Ambulatory ll1 15:46 Acuity: PANCHO 3 ll1 15:50 Chief complaint: Patient states: chest pain and irregular pulse x 3 weeks. Pt reports ss she has been under a lot of stress within the last few weeks. T[place]: 18:10 LMP N/A - , UPT negative ll1 Historical: - Allergies: 15:46 Dilaudid; ll1 15:46 Flexeril; ll1 15:46 Tylenol-Codeine #4; ll1 - PMHx: 15:46 Pt states "I don't have diabetes anymore"; Diabetes - NIDDM; ll1 - PSHx: 15:46 ; ll1 - Immunization history:: Flu vaccine is not up to date. - Social history:: Smoking status: Patient denies any tobacco usage or history of. Screenin:04 Abuse screen: Denies threats or abuse. Nutritional screening: No deficits noted. ll1 Tuberculosis screening: No symptoms or risk factors identified. Fall Risk IV access (20 points). Total Solano Fall Scale indicates No Risk (0-24 pts). Assessment: 16:03 General: Appears in no apparent distress. Behavior is calm, cooperative, appropriate ll1 for age. Pain: Complains of pain in mid chest Pain does not radiate. Pain began 3 weeks. Neuro: No deficits noted. Cardiovascular: Reports chest pain, palpitations, Heart tones S1 S2 Capillary refill < 3 seconds Clubbing of nail beds is absent JVD is absent Patient's skin is warm and dry. Rhythm is regular. Respiratory: No deficits noted. 17:00 Reassessment: No changes from previously documented assessment. Patient and/or family ll1 updated on plan of care and expected duration. Pain level reassessed. 18:00 Reassessment: No changes from previously documented assessment. Patient and/or family ll1 updated on plan of care and expected duration. Pain level reassessed. Patient is alert, oriented x 3, equal unlabored respirations, skin warm/dry/pink. Vital Signs: 15:50 BP 135 / 82; Pulse 103; Resp 16; Temp 97.9(TE); Pulse Ox 100% on R/A; Weight 86.18 kg; ss Height 5 ft. 5 in. (165.10 cm); Pain 7/10; 16:14 Pulse 97; ll1 18:08 BP 118 / 87; Pulse 94; Resp 16; Pulse Ox 99% on R/A; ll1 15:50 Body Mass Index 31.62 (86.18 kg, 165.10 cm) ED Course: 15:44 Patient arrived in ED. ds1 15:45 Vinicius Topete, AVNI is Primary Nurse. ll1 15:45 Arm band placed on Patient placed in an exam room, on a stretcher. ll1 15:47 Triage completed. ll1 15:51 Len Machuca NP is PHCP. pm1 15:51 Kevin Plunkett MD is Attending Physician. pm1 16:03 Inserted saline lock: 22 gauge in right antecubital area, using aseptic technique. ll1 Blood collected. Patient maintains SpO2 saturation greater than 95% on room air. 16:04 Patient has correct armband on for positive identification. Placed in gown. Bed in low ll1 position. Call light in reach. Side rails up X2. awake overnight monitor on. Pulse ox on. NIBP on. 16:25 XRAY Chest (1 view) In Process Unspecified. EDMS 16:27 Legal drug screen obtained per protocol. jp3 18:09 No provider procedures requiring assistance completed. IV discontinued, intact, ll1 bleeding controlled, No redness/swelling at site. Pressure dressing applied. Administered Medications: 16:14 Drug: Ativan 0.5 mg Route: PO; ll1 17:59 Follow up: Response: No adverse reaction; RASS: Alert and Calm (0) ll1 17:31 Drug: GI Cocktail without - (Maalox Suspension 30 ml, Lidocaine Liquid 2 % 15 ll1 ml) Route: PO; 17:59 Follow up: Response: No adverse reaction; RASS: Alert and Calm (0) 1 Outcome: 17:34 Discharge ordered by . pm1 18:09 Discharged to home ambulatory. ll1 18:09 Condition: stable 18:09 Discharge instructions given to patient, Instructed on discharge instructions, follow up and referral plans. no drinking with medication, no driving heavy equipment, medication usage, Demonstrated understanding of instructions, follow-up care, medications, Prescriptions given X 2. 18:11 Patient left the ED. 1 Signatures: Dispatcher [employer] E[employer]K Samaria Leo ds1 Bozena Molina RN RN Len Parks, NERISSA EARTH BORING MACHINE OPERATOR pm1 Wyatt Andrea jp3 Vinicius Topete RN RN ll1
--- NOTE | 2020-07-12 17:34 | EDPHYS ---
Physician Documentation [facility] Name: Peri Clay Age: 24 yrs Sex: Female : 1995 Arrival Date: 07/12/2020 Time: 15:44 Bed 17 Private MD: ED Physician Kevin Plunkett HPI: 07/12 16:01 This 24 yrs old Female presents to ER via Ambulatory with complaints of Chest pm1 Pain, Irregular Pulse. 16:01 The patient or guardian reports chest pain that is located primarily in the mid-sternal pm1 area. The pain does not radiate. Associated signs and symptoms: Pertinent positives: shortness of breath, Pertinent negatives: abdominal pain, cough, diaphoresis, dizziness, headache, nausea, vomiting. The chest pain is described as burning. Duration: The patient or guardian reports a single episode, that is still ongoing, onset 3 weeks ago after the murder of her sister, of mother, and cancer diagnosis of father. Modifying factors: The symptoms are alleviated by nothing. the symptoms are aggravated by eating, emotionally stressful situations. Severity of pain: in the emergency department the pain is unchanged. The patient has not experienced similar symptoms in the past. The patient has not recently seen a physician. ANTHROPOLOGICAL LINGUIST: 18:10 LMP N/A - , UPT negative ll1 Historical: - Allergies: 15:46 Dilaudid; ll1 15:46 Flexeril; ll1 15:46 Tylenol-Codeine #4; ll1 - PMHx: 15:46 Pt states "I don't have diabetes anymore"; Diabetes - NIDDM; ll1 - PSHx: 15:46 ; ll1 - Immunization history:: Flu vaccine is not up to date. - Social history:: Smoking status: Patient denies any tobacco usage or history of. ROS: 16:01 Constitutional: Negative for fever, chills, and weight loss. pm1 16:01 Respiratory: Negative for shortness of breath, cough, wheezing, and pleuritic chest pain, Abdomen/GI: Negative for abdominal pain, nausea, vomiting, diarrhea, and constipation, Back: Negative for injury and pain, MS/Extremity: Negative for injury and deformity, Skin: Negative for injury, rash, and discoloration, Neuro: Negative for headache, weakness, numbness, tingling, and seizure. 16:01 Cardiovascular: Positive for chest pain, Negative for edema, palpitations. Exam: 16:01 Constitutional: This is a well developed, well nourished patient who is awake, alert, pm1 and in no acute distress. Head/Face: Normocephalic, atraumatic. 16:01 Back: No spinal tenderness. No costovertebral tenderness. Full range of motion. Skin: Warm, dry with normal turgor. Normal color with no rashes, no lesions, and no evidence of cellulitis. MS/ Extremity: Pulses equal, no cyanosis. Neurovascular intact. Full, normal range of motion. 16:01 Chest/axilla: Inspection: normal, Palpation: tenderness, that is mild, of the mid-sternal area, that totally reproduces the patient's complaints. 16:01 Cardiovascular: Exam negative for acute changes, Rate: normal, Rhythm: regular, Pulses: no pulse deficits are appreciated. 16:01 Respiratory: Exam negative for acute changes, respiratory distress, shortness of breath. 16:01 Abdomen/GI: Exam negative for acute changes, Inspection: abdomen appears normal, Palpation: abdomen is soft and non-tender, in all quadrants. 16:01 Neuro: Exam negative for acute changes, Orientation: is normal, Mentation: is normal, Motor: is normal, moves all fours. Vital Signs: 15:50 BP 135 / 82; Pulse 103; Resp 16; Temp 97.9(TE); Pulse Ox 100% on R/A; Weight 86.18 kg; ss Height 5 ft. 5 in. (165.10 cm); Pain 7/10; 16:14 Pulse 97; ll1 18:08 BP 118 / 87; Pulse 94; Resp 16; Pulse Ox 99% on R/A; ll1 15:50 Body Mass Index 31.62 (86.18 kg, 165.10 cm) ss MDM: 15:56 Patient medically screened. pm1 17:30 Data reviewed: vital signs. Data interpreted: Pulse oximetry: on room air is 100 %. pm1 Interpretation: normal. 17:30 Counseling: I had a detailed discussion with the patient and/or guardian regarding: the pm1 historical points, exam findings, and any diagnostic results supporting the discharge/admit diagnosis, lab results, radiology results, the need for outpatient follow up, a family practitioner, a multiskill operator, to return to the emergency department if symptoms worsen or persist or if there are any questions or concerns that arise at home. 07/12 15:59 Order name: Basic Metabolic Panel pm1 07/12 15:59 Order name: CBC with Diff pm07/12 15:59 Order name: LFT's pm07/12 15:59 Order name: Magnesium pm07/12 15:59 Order name: PT-INR pm1 07/12 15:59 Order name: Troponin (emerg Dept Use Only); Complete Time: 16:48 pm1 07/12 15:59 Order name: TSH; Complete Time: 16:48 pm1 07/12 15:59 Order name: UDS; Complete Time: 17:11 pm1 07/12 15:59 Order name: Basic Metabolic Panel; Complete Time: 16:48 EDMS 07/12 15:59 Order name: CBC with Automated Diff; Complete Time: 16:32 EDMS 07/12 15:59 Order name: Liver (Hepatic) Function; Complete Time: 16:48 EDMS 07/12 16:00 Order name: Magnesium; Complete Time: 16:48 EDMS 07/12 16:00 Order name: Protime (+INR); Complete Time: 16:32 EDMS 07/12 16:31 Order name: Urine Dipstick--Ancillary (enter results) 07/12 15:59 Order name: XRAY Chest (1 view); Complete Time: 16:36 pm1 07/12 15:59 Order name: EKG; Complete Time: 16:00 pm1 07/12 15:59 Order name: Cardiac monitoring; Complete Time: 16:14 pm07/12 15:59 Order name: EKG - Nurse/Tech; Complete Time: 16:14 pm1 07/12 15:59 Order name: IV Saline Lock; Complete Time: 16:14 pm1 07/12 15:59 Order name: Labs collected and sent; Complete Time: 16:14 pm1 07/12 15:59 Order name: Urine Dipstick-Ancillary (obtain specimen); Complete Time: 16:23 pm1 07/12 15:59 Order name: Urine Test (obtain specimen); Complete Time: 16:23 pm1 07/12 16:31 Order name: Urine --Ancillary (enter results) eb 07/12 16:32 Order name: Urine Dipstick-Ancillary; Complete Time: 17:36 EDMS 07/12 16:32 Order name: Urine --Ancillary; Complete Time: 17:36 EDMS Administered Medications: 16:14 Drug: Ativan 0.5 mg Route: PO; ll1 17:59 Follow up: Response: No adverse reaction; RASS: Alert and Calm (0) ll1 17:31 Drug: GI Cocktail without - (Maalox Suspension 30 ml, Lidocaine Liquid 2 % 15 ll1 ml) Route: PO; 17:59 Follow up: Response: No adverse reaction; RASS: Alert and Calm (0) ll1 Disposition: 07/12/20 17:34 Discharged to Home. Impression: Chest pain, unspecified, Acute stress reaction. - Condition is Stable. - Discharge Instructions: Nonspecific Chest Pain, Stress and Stress Management. - Prescriptions for Ativan 0.5 mg Oral Tablet - take 1 tablet by ORAL route every 8 hours As needed; 10 tablet. Pepcid 20 mg Oral Tablet - take 1 tablet by ORAL route every 12 hours for 10 days; 20 tablet. - Medication Reconciliation Form, Thank You Letter, Antibiotic Education, Prescription Opioid Use, Work release form form. - Follow up: Emergency Department; When: As needed; Reason: Worsening of condition. Follow up: Private Physician; When: 2 - 3 days; Reason: Recheck today's complaints, Continuance of care, Re-evaluation by your physician. - Problem is new. - Symptoms have improved. Addendum: 07/14/2020 18:22 Co-signature as Attending Physician, Kevin Plunkett MD. m a2 Signatures: Dispatcher [employer] [facility] Len Machuca, ROAD DESIGN DRAFTSPERSON ROAD DESIGN DRAFTSPERSON pm1 Kevin Plunkett MD MD ma2 Vinicius Topete, RN RN ll1 Corrections: (The following items were deleted from the chart) 07/12 18:11 17:34 07/12/2020 17:34 Discharged to Home. Impression: Chest pain, unspecified; Acute ll1 stress reaction. Condition is Stable. Forms are Medication Reconciliation Form, Thank You Letter, Antibiotic Education, Prescription Opioid Use. Follow up: Emergency Department; When: As needed; Reason: Worsening of condition. Follow up: Private Physician; When: 2 - 3 days; Reason: Recheck today's complaints, Continuance of care, Re-evaluation by your physician. Problem is new. Symptoms have improved. pm1
[2020-07-12] MEDS ORDERED: MAGNES/ALUMIN/SIMET 30ML UCUP ONE (17:43)
[2020-07-12] MEDS ORDERED: LIDOCAINE VISCOUS 2% SOLN 15 ML UDC ONE (17:43)
[2020-07-12 18:27] VITALS: TEMP 97.9
[2020-07-12 18:28] VITALS: BP 118/87; O2SAT 99
--- NOTE | 2020-07-14 08:22 | EKG ---
Test Date: 2020-07-12 Test Time: 15:52:04 Magazine Editor: ANDREW MEASUREMENT RESULTS: Intervals: Rate: 102 WY: 140 QRSD: 72 QT: 338 QTc: 440 Ruth: P: 57 WY: 140 QRS: 81 T: 41 INTERPRETIVE STATEMENTS: Sinus tachycardia Low voltage QRS Borderline ECG No previous ECG available for comparison Electronically Signed On 07-14-20 08:18:03 MARKER HAND by Mk Irwin
== END 2020-07-12 18:11 | disposition home or self-care (01) ==
LOC: ER 15:43
DX: R07.9 Chest pain, unspecified (principal); F43.0 Acute stress reaction
CPT/HCPCS: 36415; 71045; 80048; 80076; 80307; 81003; 81025; 83735; 84443; 84484; 85025; 85610; 93005; 99285

== ENCOUNTER 2025-03-25 12:14 | Emergency (ER) | payer OTHER ==
--- NOTE | 2025-03-25 12:33 | EDPHYS ---
Physician Documentation [facility] Name: Peri Clay Age: 29 yrs Sex: Female : 1995 Arrival Date: 03/25/2025 Time: 12:14 Bed 1 Private MD: ED Physician Carson Angelo HPI: 03/25 12:28 This 29 yrs old Female presents to ER via Ambulatory with complaints of 28 Weeks rn , contractions. 12:28 Patient reports started feeling abdominal and back contractions yesterday, is having rn them a little more frequent. No leakage of fluid or bleeding. Contractions are happening possibly every 10 minutes or so. Patient is G6, P1. Last delivery was by , emergent , she was not advancing or dilating. Her OB doctor is at [facility]. Patient reports good movement. No fever or chills. No vomiting.. Historical: - Allergies: 12:28 Dilaudid; hb 12:28 Flexeril; hb 12:28 Tylenol-Codeine #4; hb - PMHx: 12:28 Diabetes - NIDDM; hb - Immunization history:: Adult Immunizations up to date. - Infectious Disease History:: Denies. - Social history:: Smoking status: . ROS: 12:28 Constitutional: Negative for fever, chills, and weight loss, Abdomen/GI: Positive for rn abdominal contractions : No leakage of fluid or bleeding Exam: 12:28 Constitutional: This is a well developed, well nourished patient who is awake, alert, rn and in no acute distress. Abdomen/GI: Gravid uterus, no tenderness Vital Signs: 12:25 BP 130 / 76; Pulse 102; Resp 18; Temp 97.6(O); Pulse Ox 98% on R/A; Pain 5/10; hb 12:25 Pain Scale: Adult hb MDM: 12:21 Medical Screening Exam initiated rn 12:28 Differential diagnosis: Salas bocanegra, labor. Data reviewed: vital signs, rn nurses notes. ED course: Spoke at length with patient, told her we need to do a pelvic exam to see if she is dilated, she states last time she never progressed and was never dilated so she is concerned that could lead to false reassurance. Explained to her that we do not have OB here and we would have to transfer her to [facility] for further evaluation by OB doctor to rule out labor. Patient states that she prefers to have her drive her directly to [place] instead of waiting for formal transfer process. She understands risks of driving herself over there. AVNI Bernal, was in room and patient wishes to sign out AGAINST MEDICAL ADVICE and go to another facility as she is concerned about what would happen if she went into labor and needed an emergency without an OB doctor here.. Administered Medications: No medications were administered Disposition Summary: 03/25/25 12:32 Left Against Medical Advice Notes: Location: Home rn Problem: new rn Symptoms: are unchanged rn Condition: Stable rn Diagnosis - 28 weeks gestation of rn Followup: rn - With: Private Physician - When: Upon discharge from the Emergency Department - Reason: Recheck today's complaints, Continuance of care, Re-evaluation by your physician Signatures: Carson Angelo MD MD rn Baxter, Heather, RN RN Corrections: (The following items were deleted from the chart) 12:31 12:28 ED course: Spoke at length with patient, told her we need to do a pelvic exam to rn see if she is dilated, she states last time she never progressed and was never dilated so she is concerned that could lead to false reassurance. Explained to her that we do not have OB here and we would have to transfer her to [facility] for further evaluation by OB doctor to rule out labor. Patient states that she prefers to have her drive her directly to [place] instead of waiting for formal transfer process. She understands risks of driving herself over there. AVNI Bernal, was in room and patient wishes to sign out AGAINST MEDICAL ADVICE.. rn
--- NOTE | 2025-03-25 12:33 | ER ---
Nurse's Notes [facility] Name: Peri Clay Age: 29 yrs Sex: Female : 1995 Arrival Date: 03/25/2025 Time: 12:14 Bed 1 Private MD: Diagnosis: 28 weeks gestation of Presentation: 03/25 12:25 Chief complaint: Intermittent pelvic and low back pain since last night, approx 28 hb weeks , , has not seen OB yet. Coronavirus screen: At this time, the client does not indicate any symptoms associated with coronavirus-19. Ebola Screen: No symptoms or risks identified at this time. Initial Sepsis Screen: Does the patient meet any 2 criteria? No. Patient's initial sepsis screen is negative. Does the patient have a suspected source of infection? No. Patient's initial sepsis screen is negative. Risk Assessment: Do you want to hurt yourself or someone else? Patient reports no desire to harm self or others. Onset of symptoms was March 24, 2025. 12:25 Method Of Arrival: Ambulatory hb 12:25 Acuity: PANCHO 3 hb Historical: - Allergies: 12:28 Dilaudid; hb 12:28 Flexeril; hb 12:28 Tylenol-Codeine #4; hb - PMHx: 12:28 Diabetes - NIDDM; hb - Immunization history:: Adult Immunizations up to date. - Infectious Disease History:: Denies. - Social history:: Smoking status: . Screenin:30 [facility] ED Fall Risk Assessment (Adult) History of falling in the last 3 months, ar8 including since admission No falls in past 3 months (0 pts) Confusion or Disorientation No (0 pts) Intoxicated or Sedated No (0 pts) Impaired Gait No (0 pts) Mobility Assist Device Used No (0 pt) Altered Elimination No (0 pt) Score/Fall Risk Level 0 - 2 = Low Risk Oriented to surroundings, Maintained a safe environment. 12:30 Abuse screen: Denies threats or abuse. Nutritional screening: No deficits noted. ar8 Tuberculosis screening: No symptoms or risk factors identified. Assessment: 12:30 General: Appears uncomfortable, Behavior is calm, cooperative. Pain: Complains of pain ar8 in abdomen. 12:30 Neuro: Level of Consciousness is awake, alert, obeys commands, Oriented to person, ar8 place, time, situation. Cardiovascular: Patient's skin is warm and dry. Respiratory: Airway is patent Respiratory effort is even, unlabored, Respiratory pattern is regular, symmetrical. GI: No signs and/or symptoms were reported involving the gastrointestinal system. : Reports patient reports contractions, states that she is 28 wks . EENT: No signs and/or symptoms were reported regarding the EENT system. Derm: No signs and/or symptoms reported regarding the dermatologic system. Musculoskeletal: No signs and/or symptoms reported regarding the musculoskeletal system. Vital Signs: 12:25 BP 130 / 76; Pulse 102; Resp 18; Temp 97.6(O); Pulse Ox 98% on R/A; Pain 5/10; hb 12:25 Pain Scale: Adult hb ED Course: 12:15 Patient arrived in ED. im 12:20 Carson Angelo MD is Attending Physician. rn 12:27 Triage completed. hb 12:28 Arm band placed on. 12:30 Bed in low position. Call light in reach. Side rails up X2. Provided Education on: plan ar8 of care. 12:35 No provider procedures requiring assistance completed. Patient did not have IV access ar8 during this emergency room visit. 12:37 Deven Austin, RN is Primary Nurse. ar8 Administered Medications: No medications were administered Outcome: 12:35 AMA AMA form signed ar8 12:35 Condition: stable 12:35 Discharge instructions given to ERP reviewed risks of leaving AMA with patient. patient informed to return if needed. 12:41 Patient left the ED. ar8 Signatures: Carson Angelo MD MD rn Baxter, Heather RN AVNI Daniella Sim Deven Austin, RN RN ar8
[2025-03-25 14:16] VITALS: BP 130/76; TEMP 97.6; O2SAT 98
== END 2025-03-25 12:41 | disposition left against medical advice (07) ==
LOC: ER 12:14
DX: O26.893 Other specified pregnancy related conditions, third trimester (principal); E11.9 Type 2 diabetes mellitus without complications; Z3A.28 28 weeks gestation of pregnancy; Z53.29 Procedure and treatment not carried out because of patient's decision for other reasons; Z88.8 Allergy status to other drugs, medicaments and biological substances
CPT/HCPCS: 99282